=== PATIENT | female | born 1975 | race Caucasian/White ===

== ENCOUNTER → 2016-09-04 | Outpatient (CLI) | payer BC ==
[~2016-09-04] MED LIST: PHENERGAN 25MG.25 M1 PO; PHENERGAN25 M2 RC; TRAZODONE 50MG50 MG PO; ZOLOFT100 MG PO; Zofran4 MG PO
== END ==
LOC: LAB 21:28
DX: S10.12XA Blister (nonthermal) of throat, initial encounter (principal)

== ENCOUNTER → 2016-11-15 | Outpatient (CLI) | payer BC ==
[2016-11-15 14:48] LABS: HEMOGLOBIN 12.1 g/dL (12.2-16.2); LYMPH # 1.5 K/mm3 (0.7-4.5); LYMPH % 45.5 % (10-50.0)
[2016-11-15 16:10] LABS: BUN 12 mg/dL (7-18); GFR (ESTIMATED) 110 ML/MIN (59-)
== END ==
LOC: LAB 14:30
PROVIDERS: Nurse Practitioner Obstetrics & Gynecology
DX: N92.0 Excessive and frequent menstruation with regular cycle (principal); R10.2 Pelvic and perineal pain; Z01.812 Encounter for preprocedural laboratory examination

== ENCOUNTER → 2017-03-03 | Outpatient (CLI) | payer SELFPAY ==
[2017-03-07 12:37] LABS: Thyroglobulin Antibody 1.3 IU/mL (0.0-0.9)
== END ==
LOC: LAB 15:01
PROVIDERS: Otolaryngology
DX: E03.9 Hypothyroidism, unspecified (principal)